=== PATIENT | male | born 1985 | race Hispanic/Latino ===

== ENCOUNTER 2019-12-10 17:07 | Emergency (ER) | payer BC ==
[~2019-12-10] VITALS: Ht 185.4 cm; Wt 131.2 kg
--- NOTE | 2019-12-10 17:51 | Diagnostic Imaging Report ---
Exam: Right hand radiographs-3 views History: Trauma. Comparison: None. Findings/Impression: There is a comminuted, mildly displaced fracture of the proximal aspect of the third metacarpal shaft. There is mild apex volar angulation. No evidence of dislocation. There is surrounding soft tissue edema. Deformity of the fourth metacarpal, likely sequela of remote trauma. Signed by: Dr. Wilfrido Whitehead MD on 12/10/2019 5:49 PM
[2019-12-10] MEDS ORDERED: NAPROSYN500 MG PO (18:25)
[2019-12-10 18:30] VITALS: BP 112/67
[2019-12-18] MEDS ORDERED: NAPROXEN250 MG PO (10:22)
== END 2019-12-10 18:38 | disposition home or self-care (01) ==
LOC: FSED 17:07
DX: S62.322A Displaced fracture of shaft of third metacarpal bone, right hand, initial encounter for closed fracture (principal); W23.1XXA Caught, crushed, jammed, or pinched between stationary objects, initial encounter; Y99.0 Civilian activity done for income or pay
CPT/HCPCS: 99284

== ENCOUNTER → 2019-12-18 | Day surgery (SDC) | payer BC ==
[~2019-12-18] MED LIST: ACETAMINOPHEN 1000 MG/100 ML IV ONE; BUPIVACAINE HCL 0.5% INJ 30 ML VIAL INJ ONE; CEFAZOLIN SOD 1 GM/NS 50ML 100 ML IV ONE; DEXAMETHASONE SOD PHOS INJ 4 MG/ML VIAL ONE; FENTANYL CITRATE/PF 100MCG/2 ML INJ ONE; HYDROMORPHONE 1MG/1ML INJ ONE; KETOROLAC TROMETHAMINE 30 MG/ML VIAL ONE; LIDOCAINE HCL 2% LOCAL INJ 5 ML SDV VIAL INJ ONE; MIDAZOLAM HCL 2 MG/2 ML VIAL ONE; NAPROSYN500 MG PO; NAPROXEN250 MG PO; ONDANSETRON HCL INJ 2MG/ML 2ML 2 MG/ML VIAL ONE; PROPOFOL IV EMULSION 10 MG/ML 20 ML VIAL ONE; SEVOFLURANE INHAL SOLN 250 ML PEN BTL ONE
--- OUTSIDE RECORDS SUMMARY | 2019-12-18 10:01 | XMS REPORT ---
Author Author [facility] Address Unknown Phone Unavailable Care Team Providers Care Second Hand Paper Machine Name Role Phone TANI ST Unavailable Unavailable Problems This patient has no known problems. Allergies, Adverse Reactions, Alerts This patient has no known allergies or adverse reactions. Medications This patient has no known medications. Encounters Start Date/Time End Date/Time Encounter Type Admission Type Attending [facility] Care Department Encounter ID 2017-04-19 00:00:00 2017-04-20 00:00:00 Outpatient [facility] [id number] Results Test Description Test Time Test Comments Text Results Atomic Results Result Comments HAND 3 VIEW RT - HOPD 2019-12-10 17:47:00 [place] [address] Patient Name: DANIELLE HENDRIX MR #: [id number] : 1985 Age/Sex: 34/M Req #: [id number] Adm Physician: Ordered by: TANI ST MD Report #: [id number] [facility] Room/Bed: Procedure: [id number] HOPD/HAND 3 VIEW RT - [facility]OP[facility] Exam Date: Exam Time: REPORT STATUS: Signed Exam: Right hand radiographs-3 views History: Trauma. Comparison: None. Findings/Impression: There is a comminuted, mildly displaced fracture of the proximal aspect of the third metacarpal shaft. There is mild apex volar angulation. No evidence of dislocation. There is surrounding soft tissue edema. Deformity of the fourth metacarpal, likely sequela of remote trauma. Signed by: Dr. Jelena Rivera MD on 12/10/2019 5:49 PM Dictated By: JELENA RIVERA MD 48 Transcribed By: INGRIS on 12/10/191748 COPY TO: TANI ST MD
[2019-12-18 14:40] VITALS: BP 118/81
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
== END | disposition home or self-care (01) ==
LOC: OR 09:59
PROVIDERS: ATTEND Orthopaedic Surgery
DX: S62.302A Unspecified fracture of third metacarpal bone, right hand, initial encounter for closed fracture (principal); S62.332A Displaced fracture of neck of third metacarpal bone, right hand, initial encounter for closed fracture; E66.01 Morbid (severe) obesity due to excess calories; F17.210 Nicotine dependence, cigarettes, uncomplicated; X58.XXXA Exposure to other specified factors, initial encounter
CPT/HCPCS: 26608; C1713; J0131; J0690; J1100; J1170; J1885; J2001; J2250; J2405; J2704; J3010; 76000